=== PATIENT | female | born 1945 | race Caucasian/White ===

== ENCOUNTER 2017-11-10 13:24 | Emergency (ER) | payer MEDICARE, OTHER ==
[~2017-11-10] VITALS: Ht 175.3 cm; Wt 110.0 kg
[~2017-11-10 13:24] MED LIST: AMITIZA8 MCG OR; AMOXICILLIN500 MG PO; ASPIRIN CHEWABL81 MG OR; CARAFATE OR; CEPHALEXIN500 MG PO; CLARITIN10 M1 PO; DILAUDID2 MG OR; DOCUSATE CAL240 MG PO; DULCOLAX5 MG PO; DUONEB IN; KLONOPIN1 MG PO; LANTUS; LANTUS SOLOSTAR SC; LASIX 40 MG40 MG/TAB PO; LISINOPRIL10 MG PO; METFORMIN HCL750 MG PO; METO25TAB PO; METOCLOPRAM5 MG PO; MIRALAX3350 N1 OR; MIRALAX3350 N1 PO; MOTRIN800 MG PO; MULTAQ400 MG OR; NEURONTIN300 MG PO; NOVOLOG100 IU/1 M SC; OMEPRAZOLE20 MG PO; POTASSIUM CHLO10 MEQ PO; PRAVACHOL20 MG PO; ROBAXIN-750750 MG PO; ROBITUSSIN200 MG/10 PO; TGT OMEPRAZ20 MG PO; TRAMADOL HCL50 MG PO; ULTRAM50 M1 PO
[2017-11-10] MEDS ORDERED: SYNTHROID25 MCG PO (14:06)
[2017-11-10] MEDS ORDERED: HUMALOG100 UNIT/M SC (14:16)
[2017-11-10 14:20] LABS: INFLUENZA A NONE DETECTED (NONE DETECT); INFLUENZA B NONE DETECTED (NONE DETECT)
[2017-11-10] MEDS ORDERED: PROAIR HFA108 MCG/AC PO (14:41)
[2017-11-10] MEDS ORDERED: DOXYCYC MONO100 M2 PO (14:41)
[2017-11-10] MEDS ORDERED: PREDNISONE50 MG PO (14:41)
[2017-11-10 15:03] VITALS: BP 186/79
== END 2017-11-10 15:17 | disposition home or self-care (01) ==
LOC: ED 13:24
PROVIDERS: Family Medicine
DX: J06.9 Acute upper respiratory infection, unspecified (principal); R05 Cough; J20.9 Acute bronchitis, unspecified; R06.2 Wheezing; I10 Essential (primary) hypertension

== ENCOUNTER 2018-12-15 11:10 | Emergency (ER) | payer MEDICARE, OTHER ==
[~2018-12-15] VITALS: Ht 175.3 cm; Wt 111.8 kg
[~2018-12-15 11:10] MED LIST changes: +DOXYCYC MONO100 M2 PO; +HUMALOG100 UNIT/M SC; +PREDNISONE50 MG PO; +PROAIR HFA108 MCG/AC PO; +SYNTHROID25 MCG PO
[2018-12-15] MEDS ORDERED: HUMALOG100 UNIT/M SC (11:31)
[2018-12-15] MEDS ORDERED: OSCAL 500/1 TAB PO (11:36)
[2018-12-15] MEDS ORDERED: K-DUR/KLOR-CON20 MEQ PO (11:37)
[2018-12-15] MEDS ORDERED: METO25TAB PO (11:38)
[2018-12-15] MEDS ORDERED: PRAVACHOL20 MG PO (11:40)
[2018-12-15] MEDS ORDERED: OMEPRAZOLE10 MG PO (11:48)
[2018-12-15] MEDS ORDERED: TYLENOL325 MG PO (11:50)
[2018-12-15 11:52] LABS: HEMATOCRIT 41.3 % (37.0-47.0); HEMOGLOBIN 12.9 g/dl (12.0-16.0); IMMATURE GRANULOCYTES 0.3 % (0.0-5.0); MEAN CELL VOLUME 96.9 fL CALC (80.0-100.0); MEAN CORPUSCULAR HGB 30.3 pG CALC (26.0-32.0); MEAN CORPUSCULAR HGB CONC 31.2 g/L CALC (32.0-36.0); NEUT# 5.4 thou/uL (2.00-7.15); RED BLOOD COUNT 4.26 mill/uL (4.20-5.60); RED CELL DISTRI WIDTH 12.6 % (11.5-15.5)
[2018-12-15] MEDS ORDERED: LANTUS100 UNIT/M SC (11:52)
[2018-12-15 12:02] LABS: ANION GAP 16 (6-22 (CALC)); BUN 18 mg/dL (8-23); BUN/CREATININE RATIO 16 (12-20 (CALC)); CARBON DIOXIDE 30 mmol/l (22-30); CHLORIDE 95 mmol/l (95-108); CREATININE 1.1 mg/dL (0.5-1.0); GFR 49 ML/MIN (>=60 (CALC)); GFR FOR AFR.AMER. 59 ML/MIN (>=60 (CALC)); POTASSIUM 4.1 mmol/l (3.5-5.1); SODIUM 137 mmol/l (137-146)
[2018-12-15 14:49] VITALS: BP 185/81
== END 2018-12-15 14:51 | disposition left against medical advice (07) ==
LOC: ED 11:10 → ED-I 13:42 → ED 14:51
PROVIDERS: Family Medicine
DX: I63.9 Cerebral infarction, unspecified (principal); R47.1 Dysarthria and anarthria; R27.0 Ataxia, unspecified; R20.2 Paresthesia of skin; R29.703 NIHSS score 3; I10 Essential (primary) hypertension; E11.9 Type 2 diabetes mellitus without complications; Z79.4 Long term (current) use of insulin; Z91.19 Patient's noncompliance with other medical treatment and regimen; R94.31 Abnormal electrocardiogram [ECG] [EKG]